=== PATIENT | male | born 1995 | race American Indian/Alaskan Native ===

== ENCOUNTER 2018-09-25 17:48 | Emergency (ER) | payer OTHER ==
[2018-09-25 18:03] VITALS: RESP 18; TEMP 98.3
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
[2018-09-25] MEDS ORDERED: TDAP Vaccine 0.5 mL Syr IM ONE (18:43)
[2018-09-25] MEDS ORDERED: Oxycodone/Acetaminophen 5/325 mg Tab PO STA (18:43)
[2018-09-25] MEDS ORDERED: ceFAZolin IV 2 gm in 50 mL D5W IVPB SCH (19:00)
[2018-09-26 08:13] VITALS: BP 115/78; PULSE 82; O2SAT 99
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
== END 2018-09-25 23:45 | disposition home or self-care (01) ==
LOC: ED 17:48 → MERGE 17:48 → ED 23:45
DX: S01.81XA Laceration without foreign body of other part of head, initial encounter (principal); S61.216A Laceration without foreign body of right little finger without damage to nail, initial encounter; Y04.0XXA Assault by unarmed brawl or fight, initial encounter; Z23 Encounter for immunization
CPT/HCPCS: 12002; 12011; 70450; 70486; 73130; 90471; 90715; 96365; 99285; J0690

== ENCOUNTER 2018-09-27 09:14 | Emergency (ER) | payer OTHER ==
[2018-09-27 09:33] VITALS: RESP 18; BMI 24.4
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
[2018-09-27 10:48] VITALS: BP 123/69; PULSE 72; TEMP 98.2; O2SAT 99
== END 2018-09-27 10:48 | disposition home or self-care (01) ==
LOC: ED 09:14
DX: S61.411A Laceration without foreign body of right hand, initial encounter (principal)

== ENCOUNTER 2018-10-01 09:49 | Emergency (ER) | payer OTHER ==
[2018-10-01 09:49] VITALS: BMI 24.4
[2018-10-01 10:08] VITALS: BP 126/71; PULSE 84; RESP 16; TEMP 98; O2SAT 99
--- NOTE | 2018-10-01 10:31 | ED PDOC ---
Arrival/HPI - General Chief Complaint: Suture/Staple Removal Historian: Patient - History of Present Illness Narrative History of Present Illness (Text): 10/01/18 10:28 23yo male in ED for suture removal from his left temporal side. States sutures was placed here 6days ago. Denies fever, discharge from wound, any other complaint. Past Medical History - Provider Review Nursing Documentation Reviewed: Yes - Infectious Disease Hx of Infectious Diseases: None - Tetanus Immunization Tetanus Immunization: Unknown - Past Medical History Past Medical History: No Previous - Psychiatric Hx Substance Use: No Other/Comment: ADHD - Past Surgical History Past Surgical History: No Previous - Anesthesia Hx Anesthesia: No Hx Anesthesia Reactions: No Hx Malignant Hyperthermia: No - Suicidal Assessment Feels Threatened In Home Enviroment: No Family/Social History - Physician Review Nursing Documentation Reviewed: Yes Family/Social History: Unknown Family HX Smoking Status: Never Smoked Hx Alcohol Use: No Hx Substance Use: No Hx Substance Use Treatment: No Allergies/Home Meds Allergies/Adverse Reactions: Allergies peanuts Allergy (Uncoded 10/01/18 10:08) RASH Home Medications: Home Meds Medication Instructions Recorded Confirmed Amphetamine Salt Combination 30 mg PO DAILY 12/27/14 12/27/14 [Adderall] Review of Systems - Physician Review All systems were reviewed & negative as marked: Yes - Review of Systems Constitutional: Normal Eyes: Normal ENT: Normal Respiratory: Normal Cardiovascular: Normal Gastrointestinal: Normal Genitourinary Male: Normal Musculoskeletal: Normal Skin: Other (suture removal) Neurological: Normal Endocrine: Normal Hemo/Lymphatic: Normal Psychiatric: Normal Physical Exam Vital Signs Reviewed: Yes Vital Signs Temp Pulse Resp BP Pulse Ox 10/01/18 10:05 98 F 84 16 126/71 99 Temperature: Afebrile Blood Pressure: Normal Pulse: Regular Respiratory Rate: Normal Appearance: Positive for: Well-Appearing, Non-Toxic, Comfortable Pain Distress: None Mental Status: Positive for: Alert and Oriented X 3 - Systems Exam Head: Present: Atraumatic, Normocephalic Pupils: Present: PERRL Extroacular Muscles: Present: EOMI Conjunctiva: Present: Normal Mouth: Present: Moist Mucous Membranes Neck: Present: Normal Range of Motion Respiratory/Chest: Present: Clear to Auscultation, Good Air Exchange. No: Respiratory Distress, Accessory Muscle Use Cardiovascular: Present: Regular Rate and Rhythm, Normal S1, S2. No: Murmurs Abdomen: No: Tenderness, Distention, Peritoneal Signs Back: Present: Normal Inspection Upper Extremity: Present: Normal Inspection. No: Cyanosis, Edema Lower Extremity: Present: Normal Inspection. No: Edema Neurological: Present: GCS=15, CN II-XII Intact, Speech Normal Skin: Present: Warm, Dry, Normal Color, Other (3 sutures noted intact to left temporal head. No erythema. No discharge. No warmth to touch.). No: Rashes Psychiatric: Present: Alert, Oriented x 3, Normal Insight, Normal Concentration Medical Decision Making ED Course and Treatment: 10/01/18 10:30 PT in ED for stated history. suture area cleaned with betadine and 3sutures removed. Edges appear approximated. Bacitracine applied. Advised to keep wound clean and dry. Disposition/Present on Arrival - Present on Arrival Any Indicators Present on Arrival: No History of DVT/PE: No History of Uncontrolled Diabetes: No Urinary Catheter: No History of Decub. Ulcer: No History Surgical Site Infection Following: None - Disposition Have Diagnosis and Disposition been Completed?: Yes Diagnosis: Visit for suture removal Disposition: HOME/ ROUTINE Disposition Time: 10:35 Patient Plan: Discharge Condition: STABLE Discharge Instructions (ExitCare): Stitches Removal Additional Instructions: Follow up with your doctor Keep wound clean and dry Return to ED for any new or worsening symptoms [place] [facility] [place] - Follow up with primary
== END 2018-10-01 11:30 | disposition home or self-care (01) ==
LOC: ED 09:49
DX: Z48.02 Encounter for removal of sutures (principal)

== ENCOUNTER 2018-10-11 10:23 | Emergency (ER) | payer OTHER ==
[2018-10-11 10:24] VITALS: BMI 24.4
[2018-10-11 10:53] VITALS: TEMP 97.6; O2SAT 98
--- NOTE | 2018-10-11 11:19 | ED PDOC ---
Arrival/HPI - General Chief Complaint: Suture/Staple Removal Time Seen by Provider: 10/11/18 10:48 Historian: Patient - History of Present Illness Narrative History of Present Illness (Text): 10/11/18 11:13 A 23 year old male, with no significant past medical history, presents to the emergency department for follow-up suture removal to right 5th digit. Patient denies any pain, or any other physical/symptomatic complaints at this time. No PMD Past Medical History - Provider Review Nursing Documentation Reviewed: Yes - Infectious Disease Hx of Infectious Diseases: None - Tetanus Immunization Tetanus Immunization: Unknown - Past Medical History Past Medical History: No Previous - Psychiatric Hx Substance Use: No Other/Comment: ADHD - Past Surgical History Past Surgical History: No Previous - Anesthesia Hx Anesthesia: No Hx Anesthesia Reactions: No Hx Malignant Hyperthermia: No - Suicidal Assessment Feels Threatened In Home Enviroment: No Family/Social History - Physician Review Nursing Documentation Reviewed: Yes Family/Social History: No Known Family HX Smoking Status: Never Smoked Hx Alcohol Use: No Hx Substance Use: No Hx Substance Use Treatment: No Allergies/Home Meds Allergies/Adverse Reactions: Allergies peanuts Allergy (Uncoded 10/11/18 10:53) SWELLING Home Medications: Home Meds Medication Instructions Recorded Confirmed Amphetamine Salt Combination 30 mg PO DAILY 12/27/14 10/11/18 [Adderall] Review of Systems - Physician Review All systems were reviewed & negative as marked: Yes - Review of Systems Constitutional: absent: Fevers Musculoskeletal: absent: Other (no pain to right 5th digit, here for only suture removal) Physical Exam Vital Signs Reviewed: Yes Vital Signs Temp Pulse Resp BP Pulse Ox 10/11/18 10:51 97.6 F 66 17 125/79 98 Temperature: Afebrile Blood Pressure: Normal Pulse: Regular Respiratory Rate: Normal Appearance: Positive for: Well-Appearing, Non-Toxic, Comfortable Pain Distress: None Mental Status: Positive for: Alert and Oriented X 3 - Systems Exam Upper Extremity: Present: Other (right 5th digit suture healed, no active bleeding, no pain.) Medical Decision Making ED Course and Treatment: 10/11/18 11:14 Impression: 23 year old male here for suture removal. Plan: -- Suture Removal -- Reassess and disposition Prior Visits: Notes and results from previous visits were reviewed. Patient was last seen in the emergency department on 10/01/2018 for suture removal from his left temporal side. Progress Notes: PROCEDURE: SUTURE REMOVAL Performed by the emergency provider Location: Right Hand 5th Digit Distal CMS: Normal. No deficits. Neurovascularly intact. Preparation: The wound was cleaned with NS and Betadyne. The area was prepped and draped in the usual sterile fashion. Procedure: In total, 17 sutures were removed. Post-Procedure: Good closure and hemostasis. The patient tolerated the procedure well and there were no complications. CSM remains intact. Applied Bacitracin and will discharge patient home. - Scribe Statement The provider has reviewed the documentation as recorded by the Melchoribe Jacqueline Griffin Provider Scribe Attestation: All medical record entries made by the Scribe were at my direction and personally dictated by me. I have reviewed the chart and agree that the record accurately reflects my personal performance of the history, physical exam, medical decision making, and the department course for this patient. I have also personally directed, reviewed, and agree with the discharge instructions and disposition. Disposition/Present on Arrival - Present on Arrival Any Indicators Present on Arrival: No History of DVT/PE: No History of Uncontrolled Diabetes: No Urinary Catheter: No History of Decub. Ulcer: No History Surgical Site Infection Following: None - Disposition Have Diagnosis and Disposition been Completed?: Yes Diagnosis: Visit for suture removal Disposition: HOME/ ROUTINE Disposition Time: 12:05 Condition: GOOD Discharge Instructions (ExitCare): Stitches Removal Prescriptions: Bacitracin 30 gm TP Q12 #1 oint...g. Forms: [employer] ([employer])
[2018-10-11] MEDS ORDERED: Bacitracin Ointment 30 GM TUBE TOP ONE (11:49)
[2018-10-11] MEDS ORDERED: Bacitracin 500 Units/gm Oint Foilpak UD ONE (12:01)
[2018-10-11 12:05] VITALS: BP 118/72; PULSE 62; RESP 18
== END 2018-10-11 12:07 | disposition home or self-care (01) ==
LOC: ED 10:23
DX: Z48.02 Encounter for removal of sutures (principal)